=== PATIENT | male | born 1970 | race Caucasian/White ===

== ENCOUNTER 2020-01-16 07:07 | Day surgery (SDC) | payer OTHER ==
[~2020-01-16 07:07] MED LIST: Lactated Ringers 1,000 ML IV SCH
[2020-01-16] MEDS ORDERED: fentaNYL 100 MCG/2 ML SDV ONE (08:06)
[2020-01-16] MEDS ORDERED: Propofol 200 MG/20 ML SDV ONE ×2 (08:07→09:16)
--- NOTE | 2020-01-16 19:37 | OR ---
DATE OF SURGERY: 01/16/2020. REFERRING PROVIDER: Stefanie Lee DO PRE-OPERATIVE DIAGNOSES: Screening colonoscopy. There is no known family history of colon cancer or colon polyps. POST-OPERATIVE DIAGNOSES: Two small polyps removed using cold forceps. 1. 2 mm and 3 mm polyps at 15 cm. 2. Normal-appearing distal ileum. PROCEDURE: Colonoscopy with polypectomy x2 using cold forceps. SURGEON: Srinivasa Damon M.D. ANESTHESIA: Monitored anesthesia care. BOWEL PREP: Good. Prasanth is a 49-year-old male who was brought to the endoscopy suite after discussing risks and benefits of the procedure. Informed consent was obtained for conscious sedation and colonoscopy with or without biopsy and/or polypectomy. We also discussed possibility of missed lesions. Pre-procedure exam was unremarkable. IV, oxygen, and monitors were placed. The patient was placed in the left lateral decubitus position. Sedation was administered and a digital rectal exam was performed and unremarkable. Colonoscope was passed into the rectum and slowly advanced all the way to the cecum. Cecum was viewed and photographed. The ileocecal valve was intubated, and distal ileum was normal in appearance. The colonoscope was slowly withdrawn and the mucosa was closed observed in a direct circumferential manner. The ascending colon was unremarkable. The transverse colon was unremarkable. The descending colon was unremarkable. The sigmoid colon was unremarkable except at the rectosigmoid junction, which revealed 2 mm and 3 mm polyps at 15 cm, both removed using cold forceps. Retroflexion was performed, and rectal mucosa was unremarkable. Scope was removed. The patient tolerated the procedure well. The patient was monitored until that baseline status. Discharge instructions were reviewed and the patient was discharged in good condition. COMPLICATIONS: None. TOTAL TIME: 19 minutes. ESTIMATED BLOOD LOSS: Less than 1 mL. RECOMMENDATIONS/FOLLOW-UP: We will await results of pathology report to determine ideal followup interval. I would like to kindly thank Stefanie Lee DO for this referral. DMB: 01/16/2020 12:58:53 MODL: 01/16/2020 19:32:57 /[id number]
== END 2020-01-16 10:47 | disposition home or self-care (01) ==
LOC: VM.SDS 07:07
PROVIDERS: ATTEND Family Medicine
DX: Z12.11 Encounter for screening for malignant neoplasm of colon (principal); D12.6 Benign neoplasm of colon, unspecified; I10 Essential (primary) hypertension; E78.49 Other hyperlipidemia; Z98.890 Other specified postprocedural states; Z87.19 Personal history of other diseases of the digestive system; Z79.899 Other long term (current) drug therapy
CPT/HCPCS: J2704; J3010; J7120

== ENCOUNTER 2025-07-02 11:14 | Emergency (ER) | payer BC, OTHER ==
[2025-07-02] MEDS: Diphtheria,Pertussis(Acell),Tetanus Vaccine 0.5 ML Syringe IM ONE (11:44)
[2025-07-02] MEDS: Ondansetron 4 MG/2 ML SDV IM ONE (12:07)
[2025-07-02] MEDS: Acetaminophen/HYDROcodone 325-5 MG Tab PO ONE (12:39)
== END 2025-07-02 13:56 | disposition short-term general hospital (02) ==
LOC: VM.ED 11:14
DX: S62.635A Displaced fracture of distal phalanx of left ring finger, initial encounter for closed fracture (principal); S61.315A Laceration without foreign body of left ring finger with damage to nail, initial encounter; I10 Essential (primary) hypertension; E78.00 Pure hypercholesterolemia, unspecified; Z79.899 Other long term (current) drug therapy; Z23 Encounter for immunization; W23.1XXA Caught, crushed, jammed, or pinched between stationary objects, initial encounter; Y93.89 Activity, other specified
CPT/HCPCS: 73130-LT; 90471; 90715; 96372; 99283; 99284-25; A9270-GY; J2003; J2405